=== PATIENT | female | born 1950 | race Caucasian/White ===

== ENCOUNTER 2016-03-10 17:20 | Emergency (ER) | payer MEDICAID, OTHER ==
[~2016-03-10] VITALS: Ht 160 cm; Wt 78.0 kg
[~2016-03-10 17:20] MED LIST: METF500T7 PO
[2016-03-10] MEDS ORDERED: OMEP20 PO (17:38)
[2016-03-10] MEDS ORDERED: BECL8.7A5 IH (17:38)
[2016-03-10] MEDS ORDERED: LOSA50TA37 PO (17:38)
[2016-03-10] MEDS ORDERED: ASPI-556 PO (17:38)
[2016-03-10] MEDS ORDERED: HYDR25TA PO (17:38)
[2016-03-10] MEDS ORDERED: KETOROLAC TROMETHAMINE 60 MG/2 ML VIAL IM ONE (18:45)
[2016-03-10] MEDS ORDERED: METHOCARBAMOL 500 MG TABLET PO ONE (18:45)
[2016-03-10 20:03] VITALS: BP 143/96
[2016-03-10 20:50] LABS: GLUCOSE,POINT OF CARE 88 MG/DL (70-110)
== END 2016-03-10 20:04 | disposition home or self-care (01) ==
LOC: EMS 17:21
DX: M54.42 Lumbago with sciatica, left side (principal); J45.909 Unspecified asthma, uncomplicated; E11.9 Type 2 diabetes mellitus without complications; K21.9 Gastro-esophageal reflux disease without esophagitis; E78.00 Pure hypercholesterolemia, unspecified; I10 Essential (primary) hypertension; Z79.82 Long term (current) use of aspirin
CPT/HCPCS: 82962; 96372; 99283; J1885

== ENCOUNTER 2016-03-24 14:19 | Emergency (ER) | payer OTHER ==
[~2016-03-24] VITALS: Ht 160 cm; Wt 88.6 kg
[~2016-03-24 14:19] MED LIST changes: +ASPI-556 PO; +BECL8.7A5 IH; +HYDR25TA PO; +LOSA50TA37 PO; +OMEP20 PO
[2016-03-24 14:36] LABS: GLUCOSE,POINT OF CARE 97 MG/DL (70-110)
[2016-03-24] MEDS ORDERED: METHOCARBAMOL 500 MG TABLET PO ONE (18:45)
[2016-03-24] MEDS ORDERED: KETOROLAC TROMETHAMINE 60 MG/2 ML VIAL IM ONE (18:45)
[2016-03-24] MEDS ORDERED: ACETAMINOPHEN 325 MG TABLET PO ONE (18:45)
[2016-03-24 19:23] VITALS: BP 133/69
== END 2016-03-24 19:53 | disposition home or self-care (01) ==
LOC: EMS 14:21
DX: M54.42 Lumbago with sciatica, left side (principal); J06.9 Acute upper respiratory infection, unspecified; E11.9 Type 2 diabetes mellitus without complications; K21.9 Gastro-esophageal reflux disease without esophagitis; I10 Essential (primary) hypertension; E78.00 Pure hypercholesterolemia, unspecified; J45.909 Unspecified asthma, uncomplicated; Z79.82 Long term (current) use of aspirin
CPT/HCPCS: 82962; 96372; 99283; J1885

== ENCOUNTER 2017-08-15 22:26 | Emergency (ER) | payer OTHER ==
[~2017-08-15] VITALS: Ht 160 cm; Wt 81.8 kg
[~2017-08-15 22:26] MED LIST changes: -BECL8.7A5 IH; +BECL8.7A7 IH
[2017-08-15 22:38] LABS: GLUCOSE,POINT OF CARE 144 MG/DL (70-110)
[2017-08-15] MEDS ORDERED: HYD25 PO (22:44)
[2017-08-15] MEDS ORDERED: ALBU8.5H8 IH (22:44)
[2017-08-15] MEDS ORDERED: FERR-89 PO (22:44)
[2017-08-15] MEDS ORDERED: CALC-20 PO (22:44)
[2017-08-15] MEDS ORDERED: NAPR-58 PO (22:44)
[2017-08-15] MEDS ORDERED: ATOR40TA28 PO (22:44)
[2017-08-15] MEDS ORDERED: MAG-37 PEG (22:44)
[2017-08-15] MEDS ORDERED: VITAD1000 PO (22:44)
[2017-08-15 23:15] LABS: BASOPHILS % (AUTO) 0.5 % (0.0-2.0); HEMATOCRIT 34.8 % (36-46); HEMOGLOBIN 11.6 g/dL (12.0-16.0); LYMPHOCYTES # (AUTO) 4.1 K/uL (1.0-4.8); LYMPHOCYTES % (AUTO) 39.7 % (22.0-44.0); MEAN CORPUSCULAR HEMOGLOBIN 28.3 pg (26.0-34.0); MEAN CORPUSCULAR HGB CONC 33.2 G/dL (31.0-37.0); MEAN CORPUSCULAR VOLUME 85 fL (80-100); MONOCYTES # (AUTO) 0.6 K/uL (0.1-1.0); MONOCYTES % (AUTO) 5.9 % (2.0-9.0); NEUTROPHILS # (AUTO) 5.2 K/uL (1.8-7.7); NEUTROPHILS % (AUTO) 50.9 % (40.0-70.0); PLATELET COUNT (AUTO) 157 K/uL (150-450); RED BLOOD CELL COUNT(AUTO) 4.08 MIL/uL (4.00-5.20); RED CELL DISTRIBUTION WIDTH 14.6 % (11.5-14.5)
[2017-08-15 23:16] LABS: APPEARANCE,URINE CLEAR (CLEAR); BILIRUBIN,URINE NEGATIVE (NEGATIVE); GLUCOSE, URINE (UA) NEGATIVE (NEGATIVE); KETONES,URINE NEGATIVE (NEGATIVE); LEUKOCYTE ESTERASE ,URINE MODERATE (NEGATIVE); NITRATE,URINE NEGATIVE (NEGATIVE); OCCULT BLOOD,URINE NEGATIVE (NEGATIVE); PH,URINE 5.5 (5.0-8.0); PROTEIN,URINE NEGATIVE (NEGATIVE); UROBILINOGEN,URINE 0.2 mg/dL (<=1.0)
[2017-08-15 23:23] LABS: RBC,URINE None Seen /HPF (0-2)
[2017-08-15 23:24] LABS: ANION GAP 8 mmol/L (8-16); CALCIUM, TOTAL 9.4 mg/dL (8.8-10.5); CARBON DIOXIDE 29 mmol/L (22-29); CHLORIDE 104 mmol/L (98-107); CREATININE 0.87 mg/dL (0.60-1.30); GLOMERULAR FILTR. RATE CALC > 60 mL/min (>60); GLUCOSE,RANDOM 143 mg/dL (70-110); POTASSIUM 4.1 mmol/L (3.5-5.1); SODIUM SERUM 141 mmol/L (136-145); UREA NITROGEN, BLOOD 19 mg/dL (7-18)
[2017-08-15 23:24] LABS: BACTERIA,URINE Rare /HPF (None Seen); SQUAMOUS EPITHELIAL CELL,UR Few /LPF (None Seen)
[2017-08-15 23:26] LABS: PROTHROMBIN TIME 10.3 SEC (9.4-11.6)
[2017-08-15 23:29] LABS: ALANINE AMINOTRANSFERASE 32 U/L (12-78); ALBUMIN 3.8 g/dL (3.4-5.0); ALKALINE PHOSPHATASE 88 U/L (46-116); ASPARTATE AMINOTRANSFERASE 21 U/L (15-37); BILIRUBIN,TOTAL 0.1 mg/dL (0.1-1.0); LIPASE 137 U/L (73-393); TOTAL PROTEIN, SERUM 7.3 g/dL (6.4-8.2)
[2017-08-16] MEDS ORDERED: IOVERSOL 350 MG/ML 100 ML VIAL ONE (00:21)
[2017-08-16] MEDS ORDERED: SODIUM CHLORIDE 0.9% 100 ML ONE (00:21)
[2017-08-16 03:18] VITALS: BP 127/73
== END 2017-08-16 03:22 | disposition home or self-care (01) ==
LOC: EMS 22:27
DX: R10.12 Left upper quadrant pain (principal); R94.4 Abnormal results of kidney function studies; J45.909 Unspecified asthma, uncomplicated; E11.9 Type 2 diabetes mellitus without complications; K21.9 Gastro-esophageal reflux disease without esophagitis; E78.00 Pure hypercholesterolemia, unspecified; I10 Essential (primary) hypertension
CPT/HCPCS: 36415; 71045; 74177; 80053; 81001; 82271; 82962; 83690; 84484; 85025; 85610; 85730; 87086; 93005; 99285; J7050; Q9967

== ENCOUNTER 2019-01-02 19:54 | Emergency (ER) | payer OTHER ==
[~2019-01-02] VITALS: Ht 162.6 cm; Wt 80.0 kg
[~2019-01-02 19:54] MED LIST changes: +ALBU8.5H8 IH; +ATOR40TA28 PO; +CALC-20 PO; +CHOL100018 PO; +FERR-89 PO; +HYD25 PO; -LOSA50TA37 PO; +LOSA50TA64 PO; +MAG-37 PEG; +METF500T20 PO; -METF500T7 PO; +NAPR-1025 PO
[2019-01-02 20:34] LABS: GLUCOSE,POINT OF CARE 100 MG/DL (70-110)
[2019-01-02 21:59] VITALS: BP 117/67
== END 2019-01-02 22:08 | disposition home or self-care (01) ==
LOC: EMS 19:55
DX: J40 Bronchitis, not specified as acute or chronic (principal); E11.9 Type 2 diabetes mellitus without complications; K21.9 Gastro-esophageal reflux disease without esophagitis; E78.00 Pure hypercholesterolemia, unspecified; I10 Essential (primary) hypertension; Z90.89 Acquired absence of other organs; Z79.84 Long term (current) use of oral hypoglycemic drugs

== ENCOUNTER 2019-03-12 14:08 | Emergency (ER) | payer MEDICAID, OTHER ==
[~2019-03-12] VITALS: Ht 157.5 cm; Wt 75.5 kg
[~2019-03-12 14:08] MED LIST changes: -ASPI-556 PO; -ATOR40TA28 PO; -CALC-20 PO; -CHOL100018 PO; -FERR-89 PO; -HYD25 PO; -HYDR25TA PO; +LOSA-88 PO; -LOSA50TA64 PO; -MAG-37 PEG; +METF-463 PO; -METF500T20 PO; -NAPR-1025 PO; -OMEP20 PO
[2019-03-12] MEDS ORDERED: ASPI-728 PO (14:22)
[2019-03-12 14:34] LABS: GLUCOSE,POINT OF CARE 85 MG/DL (70-110)
[2019-03-12 16:22] VITALS: BP 128/67
== END 2019-03-12 17:31 | disposition home or self-care (01) ==
LOC: EMS 14:09
DX: S80.12XA Contusion of left lower leg, initial encounter (principal); L03.116 Cellulitis of left lower limb; E11.9 Type 2 diabetes mellitus without complications; E78.00 Pure hypercholesterolemia, unspecified; I10 Essential (primary) hypertension; K21.9 Gastro-esophageal reflux disease without esophagitis; Z79.899 Other long term (current) drug therapy; Z79.84 Long term (current) use of oral hypoglycemic drugs; Z90.49 Acquired absence of other specified parts of digestive tract; Z79.82 Long term (current) use of aspirin; W18.39XA Other fall on same level, initial encounter; Y93.89 Activity, other specified; Y92.89 Other specified places as the place of occurrence of the external cause; Y99.8 Other external cause status

== ENCOUNTER 2019-03-16 08:48 | Inpatient (IN) | payer OTHER ==
[~2019-03-16] VITALS: Ht 160 cm; Wt 77.3 kg
[~2019-03-16 08:48] MED LIST changes: +ASPI-728 PO
[2019-03-16] MEDS ORDERED: CEPH-582 PO (09:03)
[2019-03-16] MEDS ORDERED: DOXY100C PO (09:03)
[2019-03-16] MEDS ORDERED: IBUP-2070 PO (09:03)
[2019-03-16 09:09] LABS: GLUCOSE,POINT OF CARE 100 MG/DL (70-110)
[2019-03-16] MEDS ORDERED: IBUPROFEN 400 MG TABLET PO ONE (09:30)
[2019-03-16] MEDS ORDERED: ACETAMINOPHEN 325 MG TABLET PO ONE (09:30)
[2019-03-16] MEDS ORDERED: SODIUM CHLORIDE 0.9% 100 ML ONE (10:15)
[2019-03-16] MEDS ORDERED: IOVERSOL 350 MG/ML 100 ML VIAL ONE (10:15)
[2019-03-16 10:24] LABS: BASOPHILS % (AUTO) 1.3 % (0.0-2.0); EOSINOPHILS % (AUTO) 2.4 % (1.0-6.0); HEMATOCRIT 34.6 % (36-46); HEMOGLOBIN 11.6 g/dL (12.0-16.0); LYMPHOCYTES # (AUTO) 1.9 K/uL (1.0-4.8); LYMPHOCYTES % (AUTO) 35.3 % (22.0-44.0); MEAN CORPUSCULAR HEMOGLOBIN 28.8 pg (26.0-34.0); MEAN CORPUSCULAR HGB CONC 33.4 G/dL (31.0-37.0); MEAN CORPUSCULAR VOLUME 86 fL (80-100); MONOCYTES # (AUTO) 0.3 K/uL (0.1-1.0); MONOCYTES % (AUTO) 5.9 % (2.0-9.0); NEUTROPHILS # (AUTO) 2.9 K/uL (1.8-7.7); NEUTROPHILS % (AUTO) 55.1 % (40.0-70.0); PLATELET COUNT (AUTO) 162 K/uL (150-450); RED BLOOD CELL COUNT(AUTO) 4.02 MIL/uL (4.00-5.20); RED CELL DISTRIBUTION WIDTH 14.3 % (11.5-14.5)
[2019-03-16 10:34] LABS: ANION GAP 5 mmol/L (8-16); CARBON DIOXIDE 30 mmol/L (22-29); CHLORIDE 104 mmol/L (98-107); CREATININE 0.74 mg/dL (0.60-1.30); GLOMERULAR FILTR. RATE CALC > 60 mL/min (>60); GLUCOSE,RANDOM 99 mg/dL (70-110); POTASSIUM 4.1 mmol/L (3.5-5.1); SODIUM SERUM 139 mmol/L (136-145); UREA NITROGEN, BLOOD 12 mg/dL (7-18)
[2019-03-16 10:40] LABS: ALANINE AMINOTRANSFERASE 23 U/L (12-78); ALBUMIN 3.7 g/dL (3.4-5.0); ALKALINE PHOSPHATASE 75 U/L (46-116); ASPARTATE AMINOTRANSFERASE 16 U/L (15-37); BILIRUBIN,TOTAL 0.5 mg/dL (0.1-1.0); TOTAL PROTEIN, SERUM 7.1 g/dL (6.4-8.2)
[2019-03-16] MEDS ORDERED: CefTRIAXone 1 GM/DEXTROSE 50 ML IV ONE (11:00)
[2019-03-16] MEDS ORDERED: ASPI-1111 PO (11:08)
[2019-03-16] MEDS ORDERED: BECL10.62 IH (11:08)
[2019-03-16] MEDS ORDERED: METF-960 PO (11:08)
[2019-03-16] MEDS ORDERED: ONDANSETRON HCL 4 MG/2 ML VIAL IVP PRN ×2 (13:15→16:00)
[2019-03-16] MEDS ORDERED: 0.9% SODIUM CHLORIDE 10 ML SYRINGE IVP PRN ×2 (13:15→16:00)
[2019-03-16] MEDS ORDERED: ACETAMINOPHEN 325 MG TABLET PO PRN (13:15)
[2019-03-16] MEDS ORDERED: IBUPROFEN 600 MG TABLET PO PRN (15:45)
[2019-03-16] MEDS ORDERED: ALBUTEROL SULFATE HFA 90 MCG/PUFF 8 GM INHALER IH PRN (15:45)
[2019-03-16] MEDS ORDERED: OxyCODONE HCL/ACETAMINOPHEN 5-325 MG TABLET PO PRN ×2 (16:00)
[2019-03-16] MEDS ORDERED: DEXTROSE 50%-WATER 25 GM/50 ML SYRINGE IVP PRN (16:00)
[2019-03-16] MEDS: FAMOTIDINE 10 MG/ML 2 ML VIAL IVP SCH (16:07)
[2019-03-16] MEDS: ASPIRIN 81 MG EC TABLET PO SCH (16:08)
[2019-03-16] MEDS: LOSARTAN POTASSIUM 50 MG TABLET PO SCH (16:08)
[2019-03-16] MEDS: CeFAZolin 1 GM/DEXTROSE 50 ML IV SCH (16:08)
[2019-03-16 20:20] VITALS: BP 123/59
[2019-03-16] MEDS: BECLOMETHASONE DIPR HFA 80 MCG/PUFF 10.6 GM INHALER IH SCH (21:00)
[2019-03-16] MEDS: HEPARIN SODIUM,PORCINE 5,000 UNITS/ML VIAL SQ SCH (21:45)
[2019-03-16] MEDS: DOCUSATE SODIUM 100 MG CAPSULE PO SCH (21:46)
[2019-03-16 21:53] LABS: GLUCOMETER DEV NAME(LOC) 6N.2; GLUCOSE,POINT OF CARE 132 MG/DL (70-110)
[2019-03-17] VITALS (7 sets, daily range): BP systolic 117–140; BP diastolic 54–76
[2019-03-17] MEDS ORDERED: SODIUM CHLORIDE 0.9% 500 ML IV ONE (00:19)
[2019-03-17] MEDS: CeFAZolin 1 GM/DEXTROSE 50 ML IV SCH ×3 (00:38→15:56)
[2019-03-17 06:51] LABS: GLUCOMETER DEV NAME(LOC) 6N.2; GLUCOSE,POINT OF CARE 103 MG/DL (70-110)
[2019-03-17] MEDS: FAMOTIDINE 10 MG/ML 2 ML VIAL IVP SCH (08:18)
[2019-03-17] MEDS: ASPIRIN 81 MG EC TABLET PO SCH (08:19)
[2019-03-17] MEDS: DOCUSATE SODIUM 100 MG CAPSULE PO SCH ×2 (08:19→21:54)
[2019-03-17] MEDS: HEPARIN SODIUM,PORCINE 5,000 UNITS/ML VIAL SQ SCH ×2 (08:20→21:00)
[2019-03-17] MEDS: BECLOMETHASONE DIPR HFA 80 MCG/PUFF 10.6 GM INHALER IH SCH ×2 (08:30→21:00)
[2019-03-17] MEDS: LOSARTAN POTASSIUM 50 MG TABLET PO SCH (08:43)
[2019-03-17 09:14] LABS: BASOPHILS % (AUTO) 1.1 % (0.0-2.0); EOSINOPHILS % (AUTO) 3.3 % (1.0-6.0); HEMATOCRIT 32.6 % (36-46); HEMOGLOBIN 11.1 g/dL (12.0-16.0); LYMPHOCYTES # (AUTO) 2.1 K/uL (1.0-4.8); LYMPHOCYTES % (AUTO) 33.8 % (22.0-44.0); MEAN CORPUSCULAR HEMOGLOBIN 29.1 pg (26.0-34.0); MEAN CORPUSCULAR VOLUME 86 fL (80-100); MONOCYTES # (AUTO) 0.4 K/uL (0.1-1.0); MONOCYTES % (AUTO) 6.2 % (2.0-9.0); NEUTROPHILS # (AUTO) 3.4 K/uL (1.8-7.7); NEUTROPHILS % (AUTO) 55.6 % (40.0-70.0); PLATELET COUNT (AUTO) 160 K/uL (150-450); RED CELL DISTRIBUTION WIDTH 14.3 % (11.5-14.5)
[2019-03-17 09:25] LABS: ANION GAP 8 mmol/L (8-16); CALCIUM, TOTAL 9.1 mg/dL (8.8-10.5); CARBON DIOXIDE 28 mmol/L (22-29); CHLORIDE 104 mmol/L (98-107); CREATININE 0.68 mg/dL (0.60-1.30); GLOMERULAR FILTR. RATE CALC > 60 mL/min (>60); GLUCOSE,RANDOM 137 mg/dL (70-110); POTASSIUM 4.5 mmol/L (3.5-5.1); SODIUM SERUM 140 mmol/L (136-145); UREA NITROGEN, BLOOD 13 mg/dL (7-18)
[2019-03-17] MEDS: INSULIN LISPRO 100 UNITS/ML SQ PRN ×2 (12:05→18:05)
[2019-03-17 12:21] LABS: GLUCOMETER DEV NAME(LOC) 6N.2; GLUCOSE,POINT OF CARE 152 MG/DL (70-110)
[2019-03-17 18:16] LABS: GLUCOMETER DEV NAME(LOC) 6N.2; GLUCOSE,POINT OF CARE 145 MG/DL (70-110)
[2019-03-18] MEDS: CeFAZolin 1 GM/DEXTROSE 50 ML IV SCH ×3 (01:03→16:21)
[2019-03-18 04:28] VITALS: BP 125/58
[2019-03-18 06:30] LABS: GLUCOMETER DEV NAME(LOC) 6N.2; GLUCOSE,POINT OF CARE 102 MG/DL (70-110)
[2019-03-18 08:30] LABS: GLUCOMETER DEV NAME(LOC) 6N.2; GLUCOSE,POINT OF CARE 123 MG/DL (70-110)
[2019-03-18 08:34] VITALS: BP 117/56
[2019-03-18] MEDS: LOSARTAN POTASSIUM 50 MG TABLET PO SCH (09:05)
[2019-03-18] MEDS: ASPIRIN 81 MG EC TABLET PO SCH (09:05)
[2019-03-18] MEDS: DOCUSATE SODIUM 100 MG CAPSULE PO SCH ×2 (09:05→20:44)
[2019-03-18] MEDS: BECLOMETHASONE DIPR HFA 80 MCG/PUFF 10.6 GM INHALER IH SCH ×2 (09:06→20:43)
[2019-03-18] MEDS: HEPARIN SODIUM,PORCINE 5,000 UNITS/ML VIAL SQ SCH ×2 (09:06→20:43)
[2019-03-18] MEDS: FAMOTIDINE 10 MG/ML 2 ML VIAL IVP SCH (09:06)
[2019-03-18 12:35] VITALS: BP 135/63
[2019-03-18 13:37] LABS: GLUCOMETER DEV NAME(LOC) 6N.2; GLUCOSE,POINT OF CARE 129 MG/DL (70-110)
[2019-03-18 16:14] VITALS: BP 138/61
[2019-03-18 20:26] VITALS: BP 130/76
[2019-03-18 23:03] LABS: GLUCOMETER DEV NAME(LOC) 6N.2; GLUCOSE,POINT OF CARE 127 MG/DL (70-110)
[2019-03-18 23:03] LABS: GLUCOMETER DEV NAME(LOC) 6N.2; GLUCOSE,POINT OF CARE 108 MG/DL (70-110)
[2019-03-18 23:33] VITALS: BP 129/62
[2019-03-19] MEDS: CeFAZolin 1 GM/DEXTROSE 50 ML IV SCH ×2 (00:13→08:35)
[2019-03-19 04:00] VITALS: BP 113/55
[2019-03-19 07:42] LABS: GLUCOMETER DEV NAME(LOC) 6N.2; GLUCOSE,POINT OF CARE 97 MG/DL (70-110)
[2019-03-19 07:51] LABS: ANION GAP 7 mmol/L (8-16); CALCIUM, TOTAL 8.9 mg/dL (8.8-10.5); CARBON DIOXIDE 28 mmol/L (22-29); CHLORIDE 107 mmol/L (98-107); GLOMERULAR FILTR. RATE CALC > 60 mL/min (>60); GLUCOSE,RANDOM 93 mg/dL (70-110); POTASSIUM 4.4 mmol/L (3.5-5.1); SODIUM SERUM 142 mmol/L (136-145); UREA NITROGEN, BLOOD 13 mg/dL (7-18)
[2019-03-19 07:59] LABS: BASOPHILS % (AUTO) 1.2 % (0.0-2.0); EOSINOPHILS % (AUTO) 4.2 % (1.0-6.0); HEMOGLOBIN 11.1 g/dL (12.0-16.0); LYMPHOCYTES # (AUTO) 2.4 K/uL (1.0-4.8); LYMPHOCYTES % (AUTO) 44.6 % (22.0-44.0); MEAN CORPUSCULAR HEMOGLOBIN 28.8 pg (26.0-34.0); MEAN CORPUSCULAR HGB CONC 33.6 G/dL (31.0-37.0); MEAN CORPUSCULAR VOLUME 86 fL (80-100); MONOCYTES # (AUTO) 0.4 K/uL (0.1-1.0); MONOCYTES % (AUTO) 7.9 % (2.0-9.0); NEUTROPHILS # (AUTO) 2.3 K/uL (1.8-7.7); NEUTROPHILS % (AUTO) 42.1 % (40.0-70.0); PLATELET COUNT (AUTO) 151 K/uL (150-450); RED BLOOD CELL COUNT(AUTO) 3.85 MIL/uL (4.00-5.20); RED CELL DISTRIBUTION WIDTH 14.4 % (11.5-14.5)
[2019-03-19] MEDS: LOSARTAN POTASSIUM 50 MG TABLET PO SCH (08:31)
[2019-03-19] MEDS: DOCUSATE SODIUM 100 MG CAPSULE PO SCH (08:31)
[2019-03-19] MEDS: ASPIRIN 81 MG EC TABLET PO SCH (08:31)
[2019-03-19] MEDS: FAMOTIDINE 10 MG/ML 2 ML VIAL IVP SCH (08:33)
[2019-03-19] MEDS: HEPARIN SODIUM,PORCINE 5,000 UNITS/ML VIAL SQ SCH (08:33)
[2019-03-19] MEDS: BECLOMETHASONE DIPR HFA 80 MCG/PUFF 10.6 GM INHALER IH SCH ×2 (08:35→08:44)
[2019-03-19 08:47] VITALS: BP 133/77
[2019-03-19 11:21] VITALS: BP 123/70
== END 2019-03-19 17:00 | disposition home health service (06) | DRG 383 ==
LOC: EMS 08:48 → 6N 18:54
PROVIDERS: ADMIT Internal Medicine; ATTEND Internal Medicine
DX: L03.116 Cellulitis of left lower limb (principal); J44.9 Chronic obstructive pulmonary disease, unspecified; E11.9 Type 2 diabetes mellitus without complications; E78.00 Pure hypercholesterolemia, unspecified; I10 Essential (primary) hypertension; S80.12XA Contusion of left lower leg, initial encounter; X58.XXXA Exposure to other specified factors, initial encounter; K21.9 Gastro-esophageal reflux disease without esophagitis; Y93.89 Activity, other specified; Y92.89 Other specified places as the place of occurrence of the external cause; Y99.8 Other external cause status; Z80.3 Family history of malignant neoplasm of breast; Z90.710 Acquired absence of both cervix and uterus; Z79.899 Other long term (current) drug therapy
CPT/HCPCS: 73701; 83735; 87040; 93971; 96365; J0690; J0696; J1644; J3490; J3535; J7040; J7050

== ENCOUNTER 2020-05-30 19:24 | Emergency (ER) | payer OTHER ==
[~2020-05-30] VITALS: Ht 165.1 cm; Wt 72.7 kg
[~2020-05-30 19:24] MED LIST changes: +ASPI-1444 PO; -ASPI-728 PO; +BECL10.62 IH; -BECL8.7A7 IH; +IBUP-2070 PO; -LOSA-88 PO; +LOSA50TA37 PO; -METF-463 PO; +METF-960 PO
[2020-05-30] MEDS ORDERED: BUSCOPAN PO (19:53)
[2020-05-30] MEDS ORDERED: [UNRECOGNIZED DRUG - OTHER] PO (19:53)
[2020-05-30] MEDS ORDERED: LEVO750T68 PO (19:53)
[2020-05-30] MEDS ORDERED: METR500 PO (19:53)
[2020-05-30] MEDS ORDERED: [UNRECOGNIZED DRUG - OTHER] PO (19:53)
[2020-05-30 19:54] LABS: GLUCOSE,POINT OF CARE 87 MG/DL (70-110)
[2020-05-30 20:42] LABS: APPEARANCE,URINE CLEAR (CLEAR); BILIRUBIN,URINE NEGATIVE (NEGATIVE); GLUCOSE, URINE (UA) NEGATIVE (NEGATIVE); KETONES,URINE NEGATIVE (NEGATIVE); LEUKOCYTE ESTERASE ,URINE NEGATIVE (NEGATIVE); NITRATE,URINE NEGATIVE (NEGATIVE); OCCULT BLOOD,URINE NEGATIVE (NEGATIVE); PH,URINE 5.5 (5.0-8.0); PROTEIN,URINE NEGATIVE (NEGATIVE); UROBILINOGEN,URINE 0.2 mg/dL (<=1.0)
[2020-05-30 21:15] LABS: BASOPHILS % (AUTO) 0.7 % (0.0-2.0); EOSINOPHILS % (AUTO) 3.4 % (1.0-6.0); HEMATOCRIT 36.2 % (36-46); HEMOGLOBIN 12.1 g/dL (12.0-16.0); LYMPHOCYTES # (AUTO) 3.8 K/uL (1.0-4.8); LYMPHOCYTES % (AUTO) 50.4 % (22.0-44.0); MEAN CORPUSCULAR HEMOGLOBIN 28.4 pg (26.0-34.0); MEAN CORPUSCULAR HGB CONC 33.3 G/dL (31.0-37.0); MEAN CORPUSCULAR VOLUME 85 fL (80-100); MONOCYTES # (AUTO) 0.5 K/uL (0.1-1.0); MONOCYTES % (AUTO) 7.2 % (2.0-9.0); NEUTROPHILS # (AUTO) 2.9 K/uL (1.8-7.7); NEUTROPHILS % (AUTO) 38.3 % (40.0-70.0); PLATELET COUNT (AUTO) 160 K/uL (150-450); RED BLOOD CELL COUNT(AUTO) 4.26 MIL/uL (4.00-5.20); RED CELL DISTRIBUTION WIDTH 13.8 % (11.5-14.5)
[2020-05-30] MEDS ORDERED: SODIUM CHLORIDE 0.9% 1,000 ML IV ONE (21:15)
[2020-05-30] MEDS ORDERED: KETOROLAC TROMETHAMINE 30 MG/ML VIAL IVP ONE (21:15)
[2020-05-30 21:27] LABS: CALCIUM, TOTAL 9.2 mg/dL (8.8-10.5); CREATININE 1.04 mg/dL (0.60-1.30); POTASSIUM 4.1 mmol/L (3.5-5.1)
[2020-05-30 21:33] LABS: ALBUMIN 4.5 g/dL (3.4-5.0); BILIRUBIN,TOTAL 0.2 mg/dL (0.1-1.0)
[2020-05-30 23:00] VITALS: BP 108/52
== END 2020-05-30 23:20 | disposition home or self-care (01) ==
LOC: EMS 19:32
DX: R10.32 Left lower quadrant pain (principal); E11.9 Type 2 diabetes mellitus without complications; K21.9 Gastro-esophageal reflux disease without esophagitis; E78.00 Pure hypercholesterolemia, unspecified; I10 Essential (primary) hypertension; Z90.89 Acquired absence of other organs
CPT/HCPCS: 36415; 71045; 74176; 80053; 81003; 82962; 83690; 84484; 85025; 93005; 96361; 96374; 99285; J1885

== ENCOUNTER 2020-10-06 22:29 | Emergency (ER) | payer OTHER ==
[~2020-10-06] VITALS: Ht 160 cm; Wt 88.6 kg
[~2020-10-06 22:29] MED LIST changes: +BUSCOPAN PO; +LEVO750T68 PO; +METR500 PO; +[UNRECOGNIZED DRUG - OTHER] PO; +[UNRECOGNIZED DRUG - OTHER] PO
[2020-10-06 23:36] LABS: EOSINOPHILS % (AUTO) 6.4 % (1.0-6.0); HEMATOCRIT 34.7 % (36-46); HEMOGLOBIN 11.2 g/dL (12.0-16.0); LYMPHOCYTES # (AUTO) 3.3 K/uL (1.0-4.8); LYMPHOCYTES % (AUTO) 50.2 % (22.0-44.0); MEAN CORPUSCULAR HEMOGLOBIN 27.6 pg (26.0-34.0); MEAN CORPUSCULAR HGB CONC 32.2 G/dL (31.0-37.0); MEAN CORPUSCULAR VOLUME 86 fL (80-100); MONOCYTES # (AUTO) 0.4 K/uL (0.1-1.0); MONOCYTES % (AUTO) 6.9 % (2.0-9.0); NEUTROPHILS # (AUTO) 2.3 K/uL (1.8-7.7); NEUTROPHILS % (AUTO) 35.5 % (40.0-70.0); PLATELET COUNT (AUTO) 148 K/uL (150-450); RED BLOOD CELL COUNT(AUTO) 4.05 MIL/uL (4.00-5.20); RED CELL DISTRIBUTION WIDTH 14.5 % (11.5-14.5)
[2020-10-06 23:46] LABS: ANION GAP 10 mmol/L (8-16); CALCIUM, TOTAL 9.4 mg/dL (8.8-10.5); CARBON DIOXIDE 29 mmol/L (22-29); CHLORIDE 107 mmol/L (98-107); CREATININE 0.69 mg/dL (0.60-1.30); GLUCOSE,RANDOM 94 mg/dL (70-110); POTASSIUM 4.8 mmol/L (3.5-5.1); SODIUM SERUM 146 mmol/L (136-145); UREA NITROGEN, BLOOD 22 mg/dL (7-18)
[2020-10-06 23:51] LABS: ALANINE AMINOTRANSFERASE 31 U/L (12-78); ALBUMIN 3.8 g/dL (3.4-5.0); ALKALINE PHOSPHATASE 88 U/L (46-116); ASPARTATE AMINOTRANSFERASE 19 U/L (15-37); BILIRUBIN,TOTAL 0.3 mg/dL (0.1-1.0); TOTAL PROTEIN, SERUM 7.6 g/dL (6.4-8.2)
[2020-10-07] LABS: GLOMERULAR FILTR. RATE CALC > 60 mL/min (>60)
[2020-10-07] MEDS ORDERED: ACETAMINOPHEN 325 MG TABLET PO ONE (00:45)
[2020-10-07 01:19] LABS: FREE T4 (FREE THYROXINE) 1.12 ng/dL (0.76-1.46); THYROID STIMULATING HORMONE 4.03 uIU/mL (0.36-3.74)
[2020-10-07 02:11] LABS: COVID AG,FIA SOURCE NASOPHARYNGEAL
[2020-10-07 02:19] LABS: APPEARANCE,URINE CLEAR (CLEAR); BILIRUBIN,URINE NEGATIVE (NEGATIVE); GLUCOSE, URINE (UA) NEGATIVE (NEGATIVE); KETONES,URINE NEGATIVE (NEGATIVE); LEUKOCYTE ESTERASE ,URINE NEGATIVE (NEGATIVE); NITRATE,URINE NEGATIVE (NEGATIVE); OCCULT BLOOD,URINE NEGATIVE (NEGATIVE); PH,URINE 5.5 (5.0-8.0); PROTEIN,URINE NEGATIVE (NEGATIVE); UROBILINOGEN,URINE 0.2 mg/dL (<=1.0)
[2020-10-07 02:24] LABS: BACTERIA,URINE Rare /HPF (None Seen); RBC,URINE None Seen /HPF (0-2); WBC,URINE 0-2 /HPF (0-5)
[2020-10-07 03:30] VITALS: BP 132/81
== END 2020-10-07 04:15 | disposition home or self-care (01) ==
LOC: EMS 22:29
DX: R51.9 Headache, unspecified (principal); I10 Essential (primary) hypertension; E11.9 Type 2 diabetes mellitus without complications; J45.909 Unspecified asthma, uncomplicated; E78.00 Pure hypercholesterolemia, unspecified; Z79.899 Other long term (current) drug therapy; Z79.82 Long term (current) use of aspirin; Z79.84 Long term (current) use of oral hypoglycemic drugs; Z20.822 Contact with and (suspected) exposure to COVID-19
CPT/HCPCS: 36415; 70450; 71045; 80053; 81001; 84439; 84443; 84484; 85025; 87426; 93005; 99285; U0003

== ENCOUNTER 2021-01-02 03:24 | Emergency (ER) | payer OTHER ==
[~2021-01-02] VITALS: Ht 162.6 cm; Wt 72.7 kg
[~2021-01-02 03:24] MED LIST changes: +METF-1211 PO; -METF-960 PO
[2021-01-02] MEDS ORDERED: SODIUM CHLORIDE 0.9% 1,000 ML IV ONE (03:45)
[2021-01-02] MEDS ORDERED: MECLIZINE HCL 25 MG TABLET PO ONE (03:45)
[2021-01-02] MEDS ORDERED: ONDANSETRON HCL 4 MG/2 ML VIAL IVP ONE (03:45)
[2021-01-02 04:09] LABS: BASOPHILS % (AUTO) 0.6 % (0.0-2.0); EOSINOPHILS % (AUTO) 2.3 % (1.0-6.0); LYMPHOCYTES # (AUTO) 3.4 K/uL (1.0-4.8); LYMPHOCYTES % (AUTO) 41.3 % (22.0-44.0); MEAN CORPUSCULAR HEMOGLOBIN 28.5 pg (26.0-34.0); MEAN CORPUSCULAR HGB CONC 33.3 G/dL (31.0-37.0); MEAN CORPUSCULAR VOLUME 86 fL (80-100); MONOCYTES # (AUTO) 0.5 K/uL (0.1-1.0); NEUTROPHILS % (AUTO) 49.8 % (40.0-70.0); PLATELET COUNT (AUTO) 141 K/uL (150-450); RED BLOOD CELL COUNT(AUTO) 3.86 MIL/uL (4.00-5.20); RED CELL DISTRIBUTION WIDTH 14.9 % (11.5-14.5)
[2021-01-02 04:12] LABS: GLUCOSE,POINT OF CARE 147 MG/DL (70-110)
[2021-01-02 04:18] LABS: CALCIUM, TOTAL 8.8 mg/dL (8.8-10.5); CREATININE 1.19 mg/dL (0.60-1.30); POTASSIUM 4.4 mmol/L (3.5-5.1)
[2021-01-02 04:24] LABS: ALBUMIN 3.7 g/dL (3.4-5.0); BILIRUBIN,TOTAL 0.1 mg/dL (0.1-1.0); TOTAL PROTEIN, SERUM 6.9 g/dL (6.4-8.2)
[2021-01-02 06:08] VITALS: BP 134/71
== END 2021-01-02 06:20 | disposition home or self-care (01) ==
LOC: EMS 03:25
DX: R42 Dizziness and giddiness (principal); R11.2 Nausea with vomiting, unspecified; J45.909 Unspecified asthma, uncomplicated; E11.9 Type 2 diabetes mellitus without complications; K21.9 Gastro-esophageal reflux disease without esophagitis; E78.00 Pure hypercholesterolemia, unspecified; I10 Essential (primary) hypertension; Z90.89 Acquired absence of other organs; Z79.84 Long term (current) use of oral hypoglycemic drugs; Z79.82 Long term (current) use of aspirin
CPT/HCPCS: 36415; 70450; 71045; 80053; 82962; 84484; 85025; 93005; 96361; 96374; 99285; J2405; J7030; 82948

== ENCOUNTER 2022-03-03 19:46 | Emergency (ER) | payer OTHER ==
[~2022-03-03] VITALS: Ht 162.6 cm; Wt 81.8 kg
[~2022-03-03 19:46] MED LIST changes: +IBUP-1492 PO; -IBUP-2070 PO; +LOSA-382 PO; -LOSA50TA37 PO
[2022-03-03 20:11] LABS: GLUCOSE,POINT OF CARE 221 MG/DL (70-110)
[2022-03-04] MEDS ORDERED: SULF-261 PO (00:59)
[2022-03-04] MEDS ORDERED: CEPH-558 PO (00:59)
[2022-03-04 01:24] VITALS: BP 134/57
== END 2022-03-04 01:43 | disposition home or self-care (01) ==
LOC: EMS 19:46
DX: R22.32 Localized swelling, mass and lump, left upper limb (principal); J45.909 Unspecified asthma, uncomplicated; E11.9 Type 2 diabetes mellitus without complications; E78.00 Pure hypercholesterolemia, unspecified; I10 Essential (primary) hypertension; Z90.49 Acquired absence of other specified parts of digestive tract; Z98.890 Other specified postprocedural states
CPT/HCPCS: 82962; 99283